=== PATIENT | female | born 1975 | race Caucasian/White ===

== ENCOUNTER → 2016-08-09 | Outpatient (CLI) | payer MEDICARE, MEDICAID ==
[~2016-08-09] MED LIST: CARBIDOPA AND L1 TA2 PO; CLARITIN LIQUI-10 MG PO; DIAZEPAM5 MG PO; GABAPENTIN100 M1 PO; LEVOTHROID0.1 MG PO; METOPROLOL25 MG PO; PHENERGAN25 M3 PO; ZANTAC 150150 MG PO
--- NOTE | 2016-08-09 16:52 | RADIOLOGY REPORT PS360 ---
US PELVIS-TRANSVAGINAL ONLY HISTORY: OVARIAN CYST COMPARISON: MRI of 06/13/2016 FINDINGS: The uterus measures 8 x 3.5 x 5 cm with a combined endometrial thickness of 5 mm. No uterine mass evident. There is an IUD present Left ovary is 2.8 x 1.2 cm. There is a 1.4 cm left ovarian cyst. This previously measured 3 cm on prior MRI. The right ovary is 3 x 2 cm and contains small follicles. No cul-de-sac fluid evident. IMPRESSION: 1. 1.4 cm left ovarian cyst decreased in size from the previous MRI over 2. IUD in place, Otherwise negative pelvic ultrasound
--- NOTE | 2016-08-11 09:44 | RADIOLOGY REPORT PS360 ---
DIG MAMM-SCREEN [facility] W/CAD CAD Screening COMPARISON: None, patient had previous mammograms [facility] 20 years ago but are not available INDICATION: There is no personal or family history of breast cancer TECHNIQUE: Standard CC and MLO images were obtained. R2 CAD reviewed. FINDINGS: Moderate heterogenic fibroglandular densities are seen in both breasts. There are multiple nodular appearing densities in the subareolar regions of both breast. There is a benign-appearing calcification left breast. There are no suspicious microcalcifications. IMPRESSION: Diffusely dense parenchymal pattern with nodular densities in the subareolar regions of both breasts and in view of the fact that there are no previous studies for comparison recommend the patient return for ultrasound exam of both breast for baseline evaluation. BI-RADS CATEGORY: 0_Incomplete: Need additional imaging RECOMMENDED FOLLOWUP: USB ULTRASOUND-BREAST (A letter has been sent to the patient regarding results of the study.)
--- NOTE | 2016-08-11 09:44 | RADIOLOGY REPORT PS360 ---
DIG MAMM-SCREEN [facility] W/CAD CAD Screening COMPARISON: None, patient had previous mammograms [facility] 20 years ago but are not available INDICATION: There is no personal or family history of breast cancer TECHNIQUE: Standard CC and MLO images were obtained. R2 CAD reviewed. FINDINGS: Moderate heterogenic fibroglandular densities are seen in both breasts. There are multiple nodular appearing densities in the subareolar regions of both breast. There is a benign-appearing calcification left breast. There are no suspicious microcalcifications. IMPRESSION: Diffusely dense parenchymal pattern with nodular densities in the subareolar regions of both breasts and in view of the fact that there are no previous studies for comparison recommend the patient return for ultrasound exam of both breast for baseline evaluation. BI-RADS CATEGORY: 0_Incomplete: Need additional imaging RECOMMENDED FOLLOWUP: USB ULTRASOUND-BREAST (A letter has been sent to the patient regarding results of the study.)
== END ==
LOC: RAD 07-24 10:30
DX: Z12.31 Encounter for screening mammogram for malignant neoplasm of breast (principal); N83.202 Unspecified ovarian cyst, left side
CPT/HCPCS: G0202